=== PATIENT | male | born 1985 | race Caucasian/White ===

== ENCOUNTER 2016-07-28 16:33 | Emergency (ER) | payer MEDICARE, MEDICAID ==
[~2016-07-28] VITALS: Ht 177.8 cm; Wt 133.4 kg
[~2016-07-28 16:33] MED LIST: AMOX1TAB26 PO; ASPI-770 PO; BUDE10.2 INH; INSU100C5 SQ; INSU100V13 SQ; LEVAMIR; LEVAMIR PO; LISI-167; LISI-167 PO; METF-86; METF10002 PO; METF500T4 PO; MUPI22OI2 TP; SIMV10TA3; SIMV10TA3 PO; TRAM100T2; VANC1VIA3 PO
[2016-07-28 16:35] VITALS: BP 174/93
[2016-07-28] MEDS ORDERED: HYDROcodone/APAP 5/325 TABLET PO STA (17:40)
[2016-07-28] MEDS ORDERED: HYDROcodone/APAP 5/325 TABLET ONE (17:47)
== END 2016-07-28 18:24 | disposition home or self-care (01) ==
LOC: ED 18:18
DX: S40.011A Contusion of right shoulder, initial encounter (principal); S60.221A Contusion of right hand, initial encounter; S16.1XXA Strain of muscle, fascia and tendon at neck level, initial encounter; J45.909 Unspecified asthma, uncomplicated; E78.5 Hyperlipidemia, unspecified; E78.00 Pure hypercholesterolemia, unspecified; I10 Essential (primary) hypertension; E11.9 Type 2 diabetes mellitus without complications; W22.8XXA Striking against or struck by other objects, initial encounter; Y93.89 Activity, other specified; Y92.89 Other specified places as the place of occurrence of the external cause; Y99.8 Other external cause status
CPT/HCPCS: 72050; 99284

== ENCOUNTER 2016-10-20 19:58 | Emergency (ER) | payer MEDICARE, MEDICAID ==
[~2016-10-20] VITALS: Ht 177.8 cm; Wt 138.9 kg
[2016-10-20] MEDS ORDERED: SODIUM CHLORIDE FLUSH 10ML SYR IVF ONE (21:00)
[2016-10-20 21:21] VITALS: BP 166/93
[2016-10-20 21:29] LABS: ASPARTATE AMINO TRANSFERASE 21 U/L (15-37); BLOOD UREA NITROGEN 15 mg/dL (7-18)
[2016-10-20 21:34] LABS: IS PT STATUS REG ER OR PRE ER? YES
== END 2016-10-20 22:32 | disposition home or self-care (01) ==
LOC: ED 21:13
DX: I10 Essential (primary) hypertension (principal); R73.9 Hyperglycemia, unspecified; J45.909 Unspecified asthma, uncomplicated; E78.00 Pure hypercholesterolemia, unspecified; G43.909 Migraine, unspecified, not intractable, without status migrainosus
CPT/HCPCS: 36415; 71010; 80053; 84484; 85025; 99285

== ENCOUNTER 2016-12-05 13:15 | Emergency (ER) | payer MEDICARE, MEDICAID ==
[~2016-12-05] VITALS: Ht 177.8 cm; Wt 138.8 kg
[2016-12-05 13:16] VITALS: BP 199/96
[2016-12-05] MEDS ORDERED: IBUPROFEN 200 MG TABLET ONE (13:57)
[2016-12-05] MEDS ORDERED: IBUPROFEN 200 MG TABLET PO ONE (14:00)
== END 2016-12-05 14:37 | disposition home or self-care (01) ==
LOC: ED 14:31
DX: S60.221A Contusion of right hand, initial encounter (principal); J45.909 Unspecified asthma, uncomplicated; I10 Essential (primary) hypertension; E78.00 Pure hypercholesterolemia, unspecified; E11.9 Type 2 diabetes mellitus without complications; E78.5 Hyperlipidemia, unspecified; Z86.73 Personal history of transient ischemic attack (TIA), and cerebral infarction without residual deficits; X58.XXXA Exposure to other specified factors, initial encounter; Y93.89 Activity, other specified; Y92.89 Other specified places as the place of occurrence of the external cause; Y99.8 Other external cause status
CPT/HCPCS: 99284

== ENCOUNTER → 2016-12-19 | Day surgery (SDC) | payer MEDICARE, MEDICAID ==
[~2016-12-19] MED LIST changes: +METF-162; -METF-86
[2016-12-19 16:53] LABS: CYTOLOGY BODY FLUID RECD INTO PATHOLOGY; CYTOLOGY BODY FLUID SOURCE CEREBROSPINAL FLUID
[2016-12-19 17:04] LABS: HEMATOCRIT 40.7 % (39.2-51.8); HEMOGLOBIN 13.2 g/dL (13.7-18.0); WHITE BLOOD COUNT 9.3 x10^3/uL (3.4-10)
[2016-12-19 17:14] LABS: ASPARTATE AMINO TRANSFERASE 15 U/L (15-37); BLOOD UREA NITROGEN 11 mg/dL (7-18)
[2016-12-19 17:37] LABS: GLUCOSE, CSF 156 mg/dL (40-80)
[2016-12-23 09:07] LABS: CRYPTOCOCCUS ANTIGEN CSF Negative (Negative); MANDATED REFLEX TO CULTURE Not Indicated (.)
[2016-12-24 14:19] LABS: ANA SCREEN NEGATIVE (Negative)
[2016-12-25 12:07] LABS: ALBUMIN CSF 22 mg/dL (11-48); ALBUMIN SERUM 3.7 g/dL (3.5-5.5); CSF IGG INDEX 0.7 (0.0-0.7); CSF/SERUM ALBUMIN INDEX 6 (0-8); IGG SERUM 524 mg/dL (700-1600); IGG SYNTHESIS RATE CSF 2.1 mg/day (-9.9 TO +3.3); MYELIN BASIC PROTEIN CSF 1.6 ng/mL (0.0-1.2)
== END ==
LOC: RAD 13:48
PROVIDERS: ATTEND Psychiatry & Neurology Neurology
DX: G93.2 Benign intracranial hypertension (principal); E11.9 Type 2 diabetes mellitus without complications; Z86.73 Personal history of transient ischemic attack (TIA), and cerebral infarction without residual deficits; Z98.890 Other specified postprocedural states; Z87.39 Personal history of other diseases of the musculoskeletal system and connective tissue
CPT/HCPCS: 36415; 62270; 80053; 82040; 82042; 82164; 82784; 82945; 83873; 84157; 85651; 86038; 86592; 86645; 86695; 86696; 86762; 86777; 86778; 87070; 87075; 87102; 87116; 87205; 87206; 87899; 88108; 89051

== ENCOUNTER 2016-12-20 18:52 | Emergency (ER) | payer MEDICARE, MEDICAID ==
[~2016-12-20] VITALS: Ht 177.8 cm; Wt 141.8 kg
[2016-12-20] MEDS ORDERED: SODIUM CHLORIDE FLUSH 10ML SYR IVF ONE (19:30)
[2016-12-20 19:39] LABS: BLOOD UREA NITROGEN 12 mg/dL (7-18)
[2016-12-20 19:52] LABS: HEMATOCRIT 41.7 % (39.2-51.8); HEMOGLOBIN 14.1 g/dL (13.7-18.0); WHITE BLOOD COUNT 10.9 x10^3/uL (3.4-10)
[2016-12-20] MEDS ORDERED: DIAZEPAM 5 MG/ML, 2ML IV ONE (20:30)
[2016-12-20] MEDS ORDERED: ONDANSETRON 2MG/ML, 2ML IVPush ONE (20:30)
[2016-12-20] MEDS ORDERED: HYDROmorphone 1 MG/ML, 1ML IV ONE (20:30)
[2016-12-20] MEDS ORDERED: HYDROmorphone 1 MG/ML, 1ML ONE (20:44)
[2016-12-20] MEDS ORDERED: DIAZEPAM 5 MG/ML, 2ML ONE (20:44)
[2016-12-20] MEDS ORDERED: ONDANSETRON 2MG/ML, 2ML ONE (20:44)
[2016-12-20 21:16] VITALS: BP 162/96
== END 2016-12-20 22:57 | disposition home or self-care (01) ==
LOC: ED 22:34
DX: S33.5XXA Sprain of ligaments of lumbar spine, initial encounter (principal); M48.06 Spinal stenosis, lumbar region; I10 Essential (primary) hypertension; E78.00 Pure hypercholesterolemia, unspecified; E11.65 Type 2 diabetes mellitus with hyperglycemia; E78.5 Hyperlipidemia, unspecified; J45.909 Unspecified asthma, uncomplicated; Z86.73 Personal history of transient ischemic attack (TIA), and cerebral infarction without residual deficits; Z90.49 Acquired absence of other specified parts of digestive tract; X58.XXXA Exposure to other specified factors, initial encounter; Y93.89 Activity, other specified; Y92.89 Other specified places as the place of occurrence of the external cause; Y99.9 Unspecified external cause status
CPT/HCPCS: 36415; 72148; 80048; 82040; 83605; 85025; 96374; 96375; 99285; J1170; J2405; J3360

== ENCOUNTER 2017-05-19 18:11 | Emergency (ER) | payer MEDICARE, MEDICAID ==
[~2017-05-19] VITALS: Ht 180.3 cm; Wt 138.0 kg
[2017-05-19 18:14] VITALS: BP 156/99
== END 2017-05-19 19:08 | disposition home or self-care (01) ==
LOC: ED 19:00
DX: G89.11 Acute pain due to trauma (principal); M79.601 Pain in right arm; I10 Essential (primary) hypertension; E11.9 Type 2 diabetes mellitus without complications; G43.909 Migraine, unspecified, not intractable, without status migrainosus; E78.00 Pure hypercholesterolemia, unspecified
CPT/HCPCS: 99284

== ENCOUNTER 2017-07-19 18:45 | Emergency (ER) | payer MEDICARE, MEDICAID ==
[~2017-07-19] VITALS: Ht 177.8 cm; Wt 141.2 kg
[2017-07-19] MEDS ORDERED: SODIUM CHLORIDE FLUSH 10ML SYR IVF ONE (19:30)
[2017-07-19 19:37] LABS: BASOPHILS # (AUTO) 0.04 x10^3/uL (0-0.1); BASOPHILS % (AUTO) 0 % (0-1); EOSINOPHILS % (AUTO) 1 % (1-7); LYMPHOCYTES # (AUTO) 2.18 x10^3/uL (1-3.4); LYMPHOCYTES % (AUTO) 16 % (22-44); MD NO; MEAN CORPUSCULAR HEMOGLOBIN 28.6 pg (27.5-34.5); MEAN PLATELET VOLUME 10.4 fL (7.4-10.4); MONOCYTES # (AUTO) 0.78 x10^3/uL (0.2-0.8); MONOCYTES % (AUTO) 6 % (2-9); NEUTROPHILS # (AUTO) 10.69 x10^3/uL (1.8-6.8); NEUTROPHILS % (AUTO) 78 % (42-75); PLATELET COUNT 180 x10^3/uL (130-400); RED CELL DISTRIBUTION WIDTH 13.8 % (9.4-14.8)
[2017-07-19 19:45] LABS: ALBUMIN 2.5 g/dL (3.4-5.0); ANION GAP 10 mmol/L (5-15); CALCIUM 8.2 mg/dL (8.5-10.1); CHLORIDE 103 mmol/L (98-107); CREATININE 1.27 mg/dL (0.7-1.3)
[2017-07-19 19:49] LABS: TROPONIN I < 0.015 ng/mL (0.000-0.045)
[2017-07-19 21:36] VITALS: BP 144/80
[2017-07-20] MEDS ORDERED: OMNIPAQUE 350 MG/ML, 100ML BOTTLE ONE (02:02)
== END 2017-07-19 21:39 | disposition home or self-care (01) ==
LOC: ED 19:59
DX: L03.116 Cellulitis of left lower limb (principal); L03.115 Cellulitis of right lower limb; M79.662 Pain in left lower leg; E10.65 Type 1 diabetes mellitus with hyperglycemia; R06.00 Dyspnea, unspecified; E78.00 Pure hypercholesterolemia, unspecified; I10 Essential (primary) hypertension; E78.5 Hyperlipidemia, unspecified; J45.909 Unspecified asthma, uncomplicated; Z86.73 Personal history of transient ischemic attack (TIA), and cerebral infarction without residual deficits
CPT/HCPCS: 36415; 71045; 71275; 80048; 82040; 84484; 85025; 93005; 99285; Q9967

== ENCOUNTER 2017-07-24 18:45 | Emergency (ER) | payer MEDICARE, MEDICAID ==
[~2017-07-24] VITALS: Ht 177.8 cm; Wt 144.2 kg
[2017-07-24 20:37] LABS: BASOPHILS # (AUTO) 0.03 x10^3/uL (0-0.1); BASOPHILS % (AUTO) 0 % (0-1); EOSINOPHILS # (AUTO) 0.22 x10^3/uL (0-0.4); EOSINOPHILS % (AUTO) 2 % (1-7); LYMPHOCYTES # (AUTO) 2.19 x10^3/uL (1-3.4); LYMPHOCYTES % (AUTO) 18 % (22-44); MD NO; MEAN CORPUSCULAR HEMOGLOBIN 29.2 pg (27.5-34.5); MEAN CORPUSCULAR VOLUME 85.8 fL (81-97); MEAN PLATELET VOLUME 9.3 fL (7.4-10.4); MONOCYTES % (AUTO) 5 % (2-9); NEUTROPHILS # (AUTO) 9.06 x10^3/uL (1.8-6.8); NEUTROPHILS % (AUTO) 75 % (42-75); PLATELET COUNT 225 x10^3/uL (130-400); RED BLOOD COUNT 4.47 x10^6/uL (4.38-5.82); RED CELL DISTRIBUTION WIDTH 14.2 % (9.4-14.8)
[2017-07-24 20:48] LABS: ALBUMIN 2.8 g/dL (3.4-5.0); ANION GAP 6 mmol/L (5-15); CALCIUM 9.3 mg/dL (8.5-10.1); CHLORIDE 105 mmol/L (98-107)
[2017-07-24 20:52] LABS: TROPONIN I < 0.015 ng/mL (0.000-0.045)
[2017-07-24] MEDS ORDERED: LABETALOL 5MG/ML, 20ML ONE (21:28)
[2017-07-24] MEDS ORDERED: SODIUM CHLORIDE FLUSH 10ML SYR IVF ONE (21:30)
[2017-07-24] MEDS ORDERED: LABETALOL 5MG/ML, 20ML IVPush ONE (21:30)
[2017-07-24] MEDS ORDERED: ASPIRIN 81 MG TABLET CHEW PO ONE (21:30)
[2017-07-24] MEDS ORDERED: ASPIRIN 81 MG TABLET CHEW ONE (21:32)
[2017-07-24 22:26] LABS: TROPONIN I < 0.015 ng/mL (0.000-0.045)
[2017-07-24 22:38] VITALS: BP 182/87
== END 2017-07-24 23:55 | disposition home or self-care (01) ==
LOC: ED 23:06
DX: R07.89 Other chest pain (principal); E11.65 Type 2 diabetes mellitus with hyperglycemia; I10 Essential (primary) hypertension; Z72.89 Other problems related to lifestyle; E78.00 Pure hypercholesterolemia, unspecified; J45.909 Unspecified asthma, uncomplicated; E78.5 Hyperlipidemia, unspecified; Z86.73 Personal history of transient ischemic attack (TIA), and cerebral infarction without residual deficits; Z90.49 Acquired absence of other specified parts of digestive tract
CPT/HCPCS: 36415; 71046; 80048; 82040; 84484; 85025; 93005; 96374

== ENCOUNTER 2017-09-29 15:58 | Emergency (ER) | payer MEDICARE, MEDICAID ==
[~2017-09-29] VITALS: Ht 177.8 cm; Wt 143.0 kg
[~2017-09-29 15:58] MED LIST changes: -ASPI-770 PO; +ASPI81TA59 PO; -TRAM100T2; +TRAM100T33
[2017-09-29 16:04] VITALS: BP 166/101
[2017-09-29] MEDS ORDERED: KETOROLAC 30 MG/1 ML ONE (17:23)
[2017-09-29] MEDS ORDERED: KETOROLAC 30 MG/1 ML IM ONE (17:30)
== END 2017-09-29 17:58 | disposition home or self-care (01) ==
LOC: ED 17:52
DX: S20.211A Contusion of right front wall of thorax, initial encounter (principal); K04.7 Periapical abscess without sinus; E11.65 Type 2 diabetes mellitus with hyperglycemia; E78.00 Pure hypercholesterolemia, unspecified; J45.909 Unspecified asthma, uncomplicated; I10 Essential (primary) hypertension; E78.5 Hyperlipidemia, unspecified; Z86.73 Personal history of transient ischemic attack (TIA), and cerebral infarction without residual deficits; Z90.49 Acquired absence of other specified parts of digestive tract; W01.0XXA Fall on same level from slipping, tripping and stumbling without subsequent striking against object, initial encounter; Y93.89 Activity, other specified; Y92.89 Other specified places as the place of occurrence of the external cause; Y99.8 Other external cause status
CPT/HCPCS: 70486; 71046; 99284

== ENCOUNTER 2017-10-06 10:11 | Emergency (ER) | payer MEDICARE, MEDICAID ==
[~2017-10-06] VITALS: Ht 177.8 cm; Wt 144.0 kg
[2017-10-06] MEDS ORDERED: ALBU18HF INH (10:33)
[2017-10-06] MEDS ORDERED: IBUP200C5 PO (10:34)
[2017-10-06 10:56] LABS: BASOPHILS # (AUTO) 0.03 x10^3/uL (0-0.1); BASOPHILS % (AUTO) 0 % (0-1); EOSINOPHILS # (AUTO) 0.19 x10^3/uL (0-0.4); EOSINOPHILS % (AUTO) 2 % (1-7); LYMPHOCYTES # (AUTO) 1.76 x10^3/uL (1-3.4); LYMPHOCYTES % (AUTO) 18 % (22-44); MD NO; MEAN CORPUSCULAR HGB CONC 34.3 g/dL (33.2-36.2); MEAN CORPUSCULAR VOLUME 84.4 fL (81-97); MEAN PLATELET VOLUME 9.7 fL (7.4-10.4); MONOCYTES # (AUTO) 0.37 x10^3/uL (0.2-0.8); MONOCYTES % (AUTO) 4 % (2-9); NEUTROPHILS # (AUTO) 7.58 x10^3/uL (1.8-6.8); NEUTROPHILS % (AUTO) 76 % (42-75); PLATELET COUNT 160 x10^3/uL (130-400); RED BLOOD COUNT 4.77 x10^6/uL (4.38-5.82); RED CELL DISTRIBUTION WIDTH 14.4 % (9.4-14.8)
[2017-10-06 11:08] LABS: ALANINE AMINOTRANSFERASE 31 U/L (12-78); ALBUMIN 2.9 g/dL (3.4-5.0); ANION GAP 11 mmol/L (5-15); CALCIUM 8.7 mg/dL (8.5-10.1); CHLORIDE 107 mmol/L (98-107); CREATININE 1.02 mg/dL (0.7-1.3)
[2017-10-06 11:12] LABS: ALKALINE PHOSPHATASE 207 U/L (45-117); BILIRUBIN,TOTAL 0.3 mg/dL (0.2-1.0); TOTAL PROTEIN 6.6 g/dL (6.4-8.2); TROPONIN I < 0.015 ng/mL (0.000-0.045)
[2017-10-06 11:46] VITALS: BP 167/88
== END 2017-10-06 11:48 | disposition home or self-care (01) ==
LOC: ED 11:09
DX: R06.00 Dyspnea, unspecified (principal); E78.5 Hyperlipidemia, unspecified; E78.00 Pure hypercholesterolemia, unspecified; I10 Essential (primary) hypertension; E11.9 Type 2 diabetes mellitus without complications
CPT/HCPCS: 36415; 71046; 80053; 84484; 85025; 93005; 99285

== ENCOUNTER 2017-10-11 20:16 | Emergency (ER) | payer MEDICARE, MEDICAID ==
[~2017-10-11] VITALS: Ht 177.8 cm; Wt 145.9 kg
[~2017-10-11 20:16] MED LIST changes: +ALBU18HF INH; +IBUP200C5 PO
[2017-10-11] MEDS ORDERED: PROPARACAINE OPHTH 0.5%, 15ML ONE (20:46)
[2017-10-11] MEDS ORDERED: FLUORESCEIN OPHTHALMIC 1 MG STRIP EACHEYE ONE (21:00)
[2017-10-11] MEDS ORDERED: PROPARACAINE OPHTH 0.5%, 15ML EACHEYE ONE (21:00)
[2017-10-11 22:05] VITALS: BP 180/97
== END 2017-10-11 22:07 | disposition home or self-care (01) ==
LOC: ED 21:21
DX: S00.211A Abrasion of right eyelid and periocular area, initial encounter (principal); H57.11 Ocular pain, right eye; X58.XXXA Exposure to other specified factors, initial encounter; Y93.89 Activity, other specified; Y92.89 Other specified places as the place of occurrence of the external cause; Y99.8 Other external cause status
CPT/HCPCS: 99283

== ENCOUNTER 2017-10-25 23:16 | Emergency (ER) | payer MEDICARE, MEDICAID ==
[~2017-10-25] VITALS: Ht 172.7 cm; Wt 142.9 kg
[~2017-10-25 23:16] MED LIST changes: -METF500T4 PO; +METF500T5 PO
[2017-10-26] MEDS ORDERED: DIPH,PERTUSS(ACELL),TET VAC/PF 0.5 ML IM-VACC ONE ×2 (00:27)
[2017-10-26 00:28] VITALS: BP 190/100
== END 2017-10-26 00:37 | disposition home or self-care (01) ==
LOC: ED 10-26 00:25
DX: S91.332A Puncture wound without foreign body, left foot, initial encounter (principal); E78.5 Hyperlipidemia, unspecified; J45.909 Unspecified asthma, uncomplicated; G43.909 Migraine, unspecified, not intractable, without status migrainosus; E11.9 Type 2 diabetes mellitus without complications; I10 Essential (primary) hypertension; Z86.73 Personal history of transient ischemic attack (TIA), and cerebral infarction without residual deficits; W21.31XA Struck by shoe cleats, initial encounter; Y93.89 Activity, other specified; Y99.8 Other external cause status; Y92.89 Other specified places as the place of occurrence of the external cause
CPT/HCPCS: 90471; 90715; 99283

== ENCOUNTER 2017-10-28 21:17 | Emergency (ER) | payer MEDICARE, MEDICAID ==
[~2017-10-28] VITALS: Ht 177.8 cm; Wt 145.4 kg
[2017-10-28 22:17] LABS: BASOPHILS # (AUTO) 0.03 x10^3/uL (0-0.1); BASOPHILS % (AUTO) 0 % (0-1); EOSINOPHILS # (AUTO) 0.23 x10^3/uL (0-0.4); EOSINOPHILS % (AUTO) 2 % (1-7); LYMPHOCYTES # (AUTO) 1.72 x10^3/uL (1-3.4); LYMPHOCYTES % (AUTO) 18 % (22-44); MD NO; MEAN CORPUSCULAR HEMOGLOBIN 28.9 pg (27.5-34.5); MEAN CORPUSCULAR HGB CONC 34.1 g/dL (33.2-36.2); MEAN CORPUSCULAR VOLUME 84.7 fL (81-97); MEAN PLATELET VOLUME 10.2 fL (7.4-10.4); MONOCYTES # (AUTO) 0.61 x10^3/uL (0.2-0.8); MONOCYTES % (AUTO) 6 % (2-9); NEUTROPHILS # (AUTO) 7.19 x10^3/uL (1.8-6.8); NEUTROPHILS % (AUTO) 74 % (42-75); PLATELET COUNT 148 x10^3/uL (130-400); RED BLOOD COUNT 4.97 x10^6/uL (4.38-5.82); RED CELL DISTRIBUTION WIDTH 14.4 % (9.4-14.8)
[2017-10-28 22:25] LABS: ALBUMIN 2.8 g/dL (3.4-5.0); ANION GAP 10 mmol/L (5-15); CALCIUM 8.7 mg/dL (8.5-10.1); CHLORIDE 102 mmol/L (98-107); CREATININE 1.24 mg/dL (0.7-1.3)
[2017-10-28 22:29] LABS: TROPONIN I < 0.015 ng/mL (0.000-0.045)
[2017-10-28] MEDS ORDERED: INSULIN REGULAR 100 UNITS/ML, 3ML VIAL SQ-INSULIN STA (22:41)
[2017-10-28] MEDS ORDERED: INSULIN REGULAR 100 UNITS/ML, 3ML VIAL ONE (22:46)
[2017-10-28 22:53] VITALS: BP 180/97
== END 2017-10-28 22:55 | disposition home or self-care (01) ==
LOC: ED 21:42
DX: R07.89 Other chest pain (principal); E10.65 Type 1 diabetes mellitus with hyperglycemia; E66.01 Morbid (severe) obesity due to excess calories; Z68.42 Body mass index [BMI] 45.0-49.9, adult; E78.5 Hyperlipidemia, unspecified; Z86.73 Personal history of transient ischemic attack (TIA), and cerebral infarction without residual deficits; E78.00 Pure hypercholesterolemia, unspecified; J45.909 Unspecified asthma, uncomplicated; I10 Essential (primary) hypertension
CPT/HCPCS: 36415; 71045; 80048; 82040; 84484; 85025; 93005; 96372; 99285

== ENCOUNTER 2017-11-10 20:51 | Emergency (ER) | payer MEDICARE, MEDICAID ==
[~2017-11-10] VITALS: Ht 177.8 cm; Wt 139.0 kg
[2017-11-10] MEDS ORDERED: KETOROLAC 30 MG/1 ML ONE (21:46)
[2017-11-10 21:56] LABS: BASOPHILS # (AUTO) 0.05 x10^3/uL (0-0.1); BASOPHILS % (AUTO) 1 % (0-1); EOSINOPHILS % (AUTO) 5 % (1-7); LYMPHOCYTES # (AUTO) 2.26 x10^3/uL (1-3.4); LYMPHOCYTES % (AUTO) 26 % (22-44); MD NO; MEAN CORPUSCULAR HEMOGLOBIN 28.7 pg (27.5-34.5); MEAN CORPUSCULAR HGB CONC 34.2 g/dL (33.2-36.2); MEAN CORPUSCULAR VOLUME 84.1 fL (81-97); MEAN PLATELET VOLUME 10.2 fL (7.4-10.4); MONOCYTES % (AUTO) 7 % (2-9); NEUTROPHILS # (AUTO) 5.32 x10^3/uL (1.8-6.8); NEUTROPHILS % (AUTO) 62 % (42-75); PLATELET COUNT 177 x10^3/uL (130-400); RED BLOOD COUNT 5.12 x10^6/uL (4.38-5.82); RED CELL DISTRIBUTION WIDTH 14.6 % (9.4-14.8)
[2017-11-10] MEDS ORDERED: KETOROLAC 60 MG/2 ML IM ONE (22:00)
[2017-11-10 22:09] LABS: ALANINE AMINOTRANSFERASE 40 U/L (12-78); ALBUMIN 3.2 g/dL (3.4-5.0); ANION GAP 7 mmol/L (5-15); CALCIUM 8.7 mg/dL (8.5-10.1); CHLORIDE 106 mmol/L (98-107); CREATININE 1.76 mg/dL (0.7-1.3)
[2017-11-10 22:13] LABS: ALKALINE PHOSPHATASE 185 U/L (45-117); BILIRUBIN,TOTAL 0.5 mg/dL (0.2-1.0); TOTAL PROTEIN 6.7 g/dL (6.4-8.2); TROPONIN I < 0.015 ng/mL (0.000-0.045)
[2017-11-10] MEDS ORDERED: SODIUM CHLORIDE FLUSH 10ML SYR IVF ONE (22:30)
[2017-11-10] MEDS ORDERED: SODIUM CHLORIDE 0.9% 1,000ML IVBOLUS ONE (22:30)
[2017-11-10 22:45] VITALS: BP 120/66
== END 2017-11-10 23:20 | disposition home or self-care (01) ==
LOC: ED 22:44
DX: R07.89 Other chest pain (principal); E11.65 Type 2 diabetes mellitus with hyperglycemia; R94.4 Abnormal results of kidney function studies; E66.01 Morbid (severe) obesity due to excess calories; Z68.41 Body mass index [BMI] 40.0-44.9, adult; Z72.9 Problem related to lifestyle, unspecified
CPT/HCPCS: 36415; 71045; 80053; 84484; 85025; 93005; 96360; 96372; 99285; J1885; J7030

== ENCOUNTER 2017-12-15 11:22 | Emergency (ER) | payer MEDICARE, MEDICAID ==
[~2017-12-15] VITALS: Ht 177.8 cm; Wt 140.3 kg
[~2017-12-15 11:22] MED LIST changes: +IBUP-1623 PO; -IBUP200C5 PO
[2017-12-15 11:23] VITALS: BP 166/97
[2017-12-15] MEDS ORDERED: KETOROLAC 30 MG/1 ML ONE (11:43)
[2017-12-15] MEDS ORDERED: KETOROLAC 30 MG/1 ML IM ONE (12:00)
== END 2017-12-15 13:07 | disposition home or self-care (01) ==
LOC: ED 11:57
DX: S20.211A Contusion of right front wall of thorax, initial encounter (principal); S40.012A Contusion of left shoulder, initial encounter; I10 Essential (primary) hypertension; E11.9 Type 2 diabetes mellitus without complications; J45.909 Unspecified asthma, uncomplicated; E78.00 Pure hypercholesterolemia, unspecified; E66.9 Obesity, unspecified; E78.5 Hyperlipidemia, unspecified; Z90.89 Acquired absence of other organs; Z86.73 Personal history of transient ischemic attack (TIA), and cerebral infarction without residual deficits; Z90.49 Acquired absence of other specified parts of digestive tract; Z68.41 Body mass index [BMI] 40.0-44.9, adult; V49.49XA Driver injured in collision with other motor vehicles in traffic accident, initial encounter; Y93.89 Activity, other specified; Y99.8 Other external cause status; Y92.89 Other specified places as the place of occurrence of the external cause
CPT/HCPCS: 71101; 73030; 96372; 99284; J1885

== ENCOUNTER 2018-04-20 20:03 | Emergency (ER) | payer MEDICARE, MEDICAID ==
[~2018-04-20] VITALS: Ht 177.8 cm; Wt 143.0 kg
[~2018-04-20 20:03] MED LIST changes: +METF500T17 PO; -METF500T5 PO
[2018-04-20] MEDS ORDERED: KETOROLAC 30 MG/1 ML ONE (20:43)
[2018-04-20 20:48] VITALS: BP 160/96
[2018-04-20] MEDS ORDERED: KETOROLAC 30 MG/1 ML IM ONE (21:00)
== END 2018-04-20 21:03 | disposition home or self-care (01) ==
LOC: ED 20:50
DX: S20.01XA Contusion of right breast, initial encounter (principal); I10 Essential (primary) hypertension; E78.5 Hyperlipidemia, unspecified; E11.9 Type 2 diabetes mellitus without complications; Z86.73 Personal history of transient ischemic attack (TIA), and cerebral infarction without residual deficits; Z90.49 Acquired absence of other specified parts of digestive tract; Z79.4 Long term (current) use of insulin; Z79.899 Other long term (current) drug therapy; W01.0XXA Fall on same level from slipping, tripping and stumbling without subsequent striking against object, initial encounter; Y93.89 Activity, other specified; Y92.009 Unspecified place in unspecified non-institutional (private) residence as the place of occurrence of the external cause; Y99.8 Other external cause status
CPT/HCPCS: 71101; 96372; 99283; J1885

== ENCOUNTER 2018-05-13 18:42 | Emergency (ER) | payer MEDICARE, MEDICAID ==
[~2018-05-13] VITALS: Ht 177.8 cm; Wt 145.0 kg
[2018-05-13 19:29] LABS: BASOPHILS # (AUTO) 0.04 x10^3/uL (0-0.1); BASOPHILS % (AUTO) 0 % (0-1); EOSINOPHILS # (AUTO) 0.29 x10^3/uL (0-0.4); EOSINOPHILS % (AUTO) 3 % (1-7); LYMPHOCYTES # (AUTO) 2.13 x10^3/uL (1-3.4); LYMPHOCYTES % (AUTO) 21 % (22-44); MD NO; MEAN CORPUSCULAR HEMOGLOBIN 27.5 pg (27.5-34.5); MEAN CORPUSCULAR HGB CONC 33.8 g/dL (33.2-36.2); MEAN CORPUSCULAR VOLUME 81.2 fL (81-97); MEAN PLATELET VOLUME 10.6 fL (7.4-10.4); MONOCYTES # (AUTO) 0.65 x10^3/uL (0.2-0.8); MONOCYTES % (AUTO) 6 % (2-9); NEUTROPHILS % (AUTO) 70 % (42-75); PLATELET COUNT 156 x10^3/uL (130-400); RED BLOOD COUNT 5.49 x10^6/uL (4.38-5.82)
[2018-05-13 19:37] LABS: ALBUMIN 3.1 g/dL (3.4-5.0); ANION GAP 8 mmol/L (5-15); CALCIUM 9.3 mg/dL (8.5-10.1); CHLORIDE 104 mmol/L (98-107)
[2018-05-13 19:44] LABS: ALANINE AMINOTRANSFERASE 31 U/L (12-78); ALKALINE PHOSPHATASE 203 U/L (45-117); BILIRUBIN,TOTAL 0.5 mg/dL (0.2-1.0); CREATININE 1.07 mg/dL (0.7-1.3); TOTAL PROTEIN 6.9 g/dL (6.4-8.2); TROPONIN I < 0.015 ng/mL (0.000-0.045)
--- NOTE | 2018-05-13 19:58 | NUR ---
assessment made. chart up for MD to see.
--- NOTE | 2018-05-13 20:15 | NUR ---
all labs resulted. chart up for MD to re-eval.
--- NOTE | 2018-05-13 21:12 | NUR ---
PA at bedside.
--- NOTE | 2018-05-13 21:39 | NUR ---
ERP at bedside for re-evaluation. awaiting discharge paper.
--- NOTE | 2018-05-13 22:07 | NUR ---
patient discharged with instruction. verbalized understanding.
[2018-05-13 22:09] VITALS: BP 165/92
== END 2018-05-13 22:11 | disposition home or self-care (01) ==
LOC: ED 21:37
DX: R07.89 Other chest pain (principal); I10 Essential (primary) hypertension; E11.9 Type 2 diabetes mellitus without complications; E78.00 Pure hypercholesterolemia, unspecified; J45.909 Unspecified asthma, uncomplicated; G43.909 Migraine, unspecified, not intractable, without status migrainosus; E78.5 Hyperlipidemia, unspecified; E66.01 Morbid (severe) obesity due to excess calories; Z68.42 Body mass index [BMI] 45.0-49.9, adult; Z86.73 Personal history of transient ischemic attack (TIA), and cerebral infarction without residual deficits
CPT/HCPCS: 36415; 71046; 80053; 84484; 85025; 93005; 99284

== ENCOUNTER 2018-07-09 21:33 | Emergency (ER) | payer MEDICARE, MEDICAID ==
[~2018-07-09] VITALS: Ht 177.8 cm; Wt 141.0 kg
[2018-07-09 21:48] VITALS: BP 151/97
== END 2018-07-09 22:54 | disposition home or self-care (01) ==
LOC: ED 22:20
DX: G89.11 Acute pain due to trauma (principal); M25.561 Pain in right knee; I10 Essential (primary) hypertension; E78.00 Pure hypercholesterolemia, unspecified; E11.65 Type 2 diabetes mellitus with hyperglycemia; J45.909 Unspecified asthma, uncomplicated; X58.XXXA Exposure to other specified factors, initial encounter; Y93.89 Activity, other specified; Y92.89 Other specified places as the place of occurrence of the external cause; Y99.8 Other external cause status
CPT/HCPCS: 99283

== ENCOUNTER 2018-08-16 18:09 | Emergency (ER) | payer MEDICARE, MEDICAID ==
[~2018-08-16] VITALS: Ht 177.8 cm; Wt 140.8 kg
[2018-08-16 18:16] VITALS: BP 197/110
--- NOTE | 2018-08-16 18:34 | NUR ---
pt to ed for right sided lower rib pain since yesterday. pt reports severe coughing and hearing a "pop" yesterday. connected to monitors. vss. awaiting edmd assessment.
--- NOTE | 2018-08-16 18:50 | NUR ---
pt to xr.
[2018-08-16] MEDS ORDERED: KETOROLAC 30 MG/1 ML ONE (19:26)
[2018-08-16] MEDS ORDERED: KETOROLAC 30 MG/1 ML IM ONE (19:30)
--- NOTE | 2018-08-16 19:37 | NUR ---
PT MEDICATED WITH 60MG TORADOL PER EMAR. STATES "HE FEELS NAUSEATED TOO." NOTIFIED PHYSICIAN.
[2018-08-16] MEDS ORDERED: ONDANSETRON ODT 4 MG ONE (19:43)
[2018-08-16] MEDS ORDERED: ONDANSETRON ODT 4 MG PO ONE (20:00)
== END 2018-08-16 20:08 | disposition home or self-care (01) ==
LOC: ED 18:59
DX: M94.0 Chondrocostal junction syndrome [Tietze] (principal); I10 Essential (primary) hypertension; E11.65 Type 2 diabetes mellitus with hyperglycemia; E78.5 Hyperlipidemia, unspecified; J45.909 Unspecified asthma, uncomplicated; G89.29 Other chronic pain; E66.01 Morbid (severe) obesity due to excess calories; Z90.89 Acquired absence of other organs; Z90.49 Acquired absence of other specified parts of digestive tract; Z86.73 Personal history of transient ischemic attack (TIA), and cerebral infarction without residual deficits; Z68.41 Body mass index [BMI] 40.0-44.9, adult
CPT/HCPCS: 71101; 96372; 99283; J1885; Q0162

== ENCOUNTER 2018-08-21 05:34 | Emergency (ER) | payer MEDICARE, MEDICAID ==
[~2018-08-21] VITALS: Ht 177.8 cm; Wt 145.0 kg
--- NOTE | 2018-08-21 05:44 | NUR ---
EKG DONE IN TRIAGE
[2018-08-21] MEDS ORDERED: ALBUTEROL SULFATE 2.5 MG/3 ML NPPB ONE (06:00)
[2018-08-21] MEDS ORDERED: ALBUTEROL SULFATE 2.5 MG/3 ML ONE (06:15)
[2018-08-21] MEDS ORDERED: LISINOPRIL 10 MG TABLET ONE (06:42)
--- NOTE | 2018-08-21 06:46 | NUR ---
PT MEDICATED PER JUN. PT UP TO RESTROOM WITH STEADY GAIT AT THIS TIME.
--- NOTE | 2018-08-21 06:49 | NUR ---
RECIVED BEDSIDE REPORT FROM FACUNDO PATTON.
[2018-08-21] MEDS ORDERED: LISINOPRIL 10 MG TABLET PO ONE (07:00)
--- NOTE | 2018-08-21 07:07 | NUR ---
PT SITTING ON GURSOCORRO WATCHING VIDEO ON CELL PHONE. NO ACUTE DISTRESS NOTED. NO NEEDS REQUESTED AT THIS TIME.
[2018-08-21 07:10] VITALS: BP 171/97
--- NOTE | 2018-08-21 07:44 | NUR ---
PT AMBULATED FROM ROOM 3 TO ROOM 5 ON PULSE OX, PT SATURATION WAS 100%
--- NOTE | 2018-08-21 08:15 | NUR ---
Patient/Caregiver given discharge instructions and they have confirmed that they understand the instructions. Patient ambulatory with steady gait. PT LEFT WITH ALL PERSONAL BELONGINGS.
== END 2018-08-21 08:27 | disposition home or self-care (01) ==
LOC: ED 06:06
DX: R06.00 Dyspnea, unspecified (principal); I10 Essential (primary) hypertension; E11.9 Type 2 diabetes mellitus without complications; E66.01 Morbid (severe) obesity due to excess calories; Z68.42 Body mass index [BMI] 45.0-49.9, adult; E78.5 Hyperlipidemia, unspecified; G43.909 Migraine, unspecified, not intractable, without status migrainosus; R06.2 Wheezing; E78.00 Pure hypercholesterolemia, unspecified; Z72.9 Problem related to lifestyle, unspecified; Z86.73 Personal history of transient ischemic attack (TIA), and cerebral infarction without residual deficits
CPT/HCPCS: 71046; 93005; 94640; 99283; J7512; J7613

== ENCOUNTER 2018-08-26 02:17 | Emergency (ER) | payer MEDICARE, MEDICAID ==
[~2018-08-26] VITALS: Ht 177.8 cm; Wt 147.8 kg
--- NOTE | 2018-08-26 02:52 | NUR ---
PT. AMBULATORY TO X-RAY WITH STEADY GAIT.
--- NOTE | 2018-08-26 03:36 | NUR ---
PT. SITTING ON GURNEY WITH NADN. RESP EVEN, NON-LABORED. PT. DENIES NEEDS AT THIS TIME. UPDATED THAT WE ARE WATING ON RADIOLOGY READS FOR X-RAYS.
--- NOTE | 2018-08-26 03:52 | NUR ---
CHART UP FOR RECHECK BY ERP.
--- NOTE | 2018-08-26 04:01 | NUR ---
BRO RATLIFF IN TO DISCUSS POC WITH PT.
[2018-08-26 04:12] VITALS: BP 180/111
== END 2018-08-26 04:12 | disposition home or self-care (01) ==
LOC: ED 02:46
DX: G89.11 Acute pain due to trauma (principal); M25.512 Pain in left shoulder; M54.6 Pain in thoracic spine; I10 Essential (primary) hypertension; E11.9 Type 2 diabetes mellitus without complications; X58.XXXA Exposure to other specified factors, initial encounter; Y93.89 Activity, other specified; Y92.410 Unspecified street and highway as the place of occurrence of the external cause; Y99.8 Other external cause status
CPT/HCPCS: 72072; 99283

== ENCOUNTER 2018-09-11 18:55 | Emergency (ER) | payer MEDICARE, MEDICAID ==
[~2018-09-11] VITALS: Ht 177.8 cm; Wt 141.3 kg
[2018-09-11] MEDS ORDERED: KETOROLAC 30 MG/1 ML IM ONE (19:30)
--- NOTE | 2018-09-11 19:30 | NUR ---
PT BIB FAMILY FOR 3 DAYS HX OF LEFT RIB PAIN WITH COUGH DEVOLOPING SINCE YESTERDAY. PT DENIES ANY TRAUMA, SOB, FEVERS, CHILLS, OR SORE THROAT. PT ON MONITOR.
[2018-09-11 19:39] LABS: BASOPHILS # (AUTO) 0.05 x10^3/uL (0-0.1); BASOPHILS % (AUTO) 1 % (0-1); EOSINOPHILS # (AUTO) 0.15 x10^3/uL (0-0.4); EOSINOPHILS % (AUTO) 2 % (1-7); LYMPHOCYTES # (AUTO) 1.91 x10^3/uL (1-3.4); LYMPHOCYTES % (AUTO) 22 % (22-44); MD NO; MEAN CORPUSCULAR HEMOGLOBIN 28.5 pg (27.5-34.5); MEAN CORPUSCULAR HGB CONC 33.1 g/dL (33.2-36.2); MEAN PLATELET VOLUME 10.8 fL (7.4-10.4); MONOCYTES # (AUTO) 0.44 x10^3/uL (0.2-0.8); MONOCYTES % (AUTO) 5 % (2-9); NEUTROPHILS # (AUTO) 6.21 x10^3/uL (1.8-6.8); NEUTROPHILS % (AUTO) 71 % (42-75); PLATELET COUNT 140 x10^3/uL (130-400); RED BLOOD COUNT 4.99 x10^6/uL (4.38-5.82); RED CELL DISTRIBUTION WIDTH 14.4 % (9.4-14.8)
[2018-09-11] MEDS ORDERED: KETOROLAC 30 MG/1 ML ONE (19:46)
[2018-09-11 19:50] LABS: ANION GAP 6 mmol/L (5-15); CALCIUM 8.7 mg/dL (8.5-10.1); CHLORIDE 104 mmol/L (98-107); CREATININE 1.13 mg/dL (0.7-1.3)
[2018-09-11 19:54] LABS: ALKALINE PHOSPHATASE 177 U/L (45-117); BILIRUBIN,TOTAL 0.7 mg/dL (0.2-1.0); TOTAL PROTEIN 6.2 g/dL (6.4-8.2); TROPONIN I < 0.015 ng/mL (0.000-0.045)
[2018-09-11 19:58] LABS: ALANINE AMINOTRANSFERASE 26 U/L (12-78)
--- NOTE | 2018-09-11 20:08 | NUR ---
CHART UP FOR MD RECHECK. PT'S BS WAS 454. PT AWARE.
[2018-09-11 20:24] VITALS: BP 181/91
== END 2018-09-11 20:40 | disposition home or self-care (01) ==
LOC: ED 20:30
DX: R07.89 Other chest pain (principal); I10 Essential (primary) hypertension; R09.1 Pleurisy; E11.65 Type 2 diabetes mellitus with hyperglycemia; E78.00 Pure hypercholesterolemia, unspecified; G43.909 Migraine, unspecified, not intractable, without status migrainosus; J45.909 Unspecified asthma, uncomplicated; E78.5 Hyperlipidemia, unspecified; E66.01 Morbid (severe) obesity due to excess calories; Z68.41 Body mass index [BMI] 40.0-44.9, adult; Z90.49 Acquired absence of other specified parts of digestive tract; Z86.73 Personal history of transient ischemic attack (TIA), and cerebral infarction without residual deficits; Z72.9 Problem related to lifestyle, unspecified
CPT/HCPCS: 36415; 71045; 80053; 84484; 85025; 93005; 96372; 99284; J1885

== ENCOUNTER 2018-09-20 03:49 | Emergency (ER) | payer MEDICARE, MEDICAID ==
[~2018-09-20] VITALS: Ht 177.8 cm; Wt 145.3 kg
--- NOTE | 2018-09-20 04:02 | NUR ---
FIRST CONTACT WITH PT. PT HERE STATING THAT HE HAS HAD A COUGH FOR A MONTH AND HE WOKE UP COUGHING AND THERE WAS BLOOD IN IT. PT ALSO C/O RIGHT GREAT TOE PAIN. PT'S AOX4. RESPS EVEN AND UNLABORED. AWAITING EDMD ASSESSMENT AT THIS TIME.
--- NOTE | 2018-09-20 05:11 | NUR ---
pt to xray now.
[2018-09-20 05:27] LABS: BASOPHILS # (AUTO) 0.05 x10^3/uL (0-0.1); BASOPHILS % (AUTO) 1 % (0-1); EOSINOPHILS % (AUTO) 2 % (1-7); LYMPHOCYTES # (AUTO) 1.55 x10^3/uL (1-3.4); LYMPHOCYTES % (AUTO) 16 % (22-44); MD NO; MEAN CORPUSCULAR HEMOGLOBIN 28.6 pg (27.5-34.5); MEAN CORPUSCULAR HGB CONC 33.3 g/dL (33.2-36.2); MEAN CORPUSCULAR VOLUME 85.8 fL (81-97); MEAN PLATELET VOLUME 10.6 fL (7.4-10.4); MONOCYTES # (AUTO) 0.52 x10^3/uL (0.2-0.8); MONOCYTES % (AUTO) 6 % (2-9); NEUTROPHILS # (AUTO) 7.16 x10^3/uL (1.8-6.8); NEUTROPHILS % (AUTO) 76 % (42-75); PLATELET COUNT 166 x10^3/uL (130-400); RED BLOOD COUNT 5.03 x10^6/uL (4.38-5.82); RED CELL DISTRIBUTION WIDTH 14.2 % (9.4-14.8)
[2018-09-20 05:41] LABS: ANION GAP 7 mmol/L (5-15); CALCIUM 8.6 mg/dL (8.5-10.1); CHLORIDE 109 mmol/L (98-107)
[2018-09-20 05:47] VITALS: BP 205/83
--- NOTE | 2018-09-20 05:47 | NUR ---
pt's bp is 205/83. edmd/pa notified.
--- NOTE | 2018-09-20 06:10 | NUR ---
pt amb to br and back to room with steady gait.
--- NOTE | 2018-09-20 06:55 | NUR ---
REPORT GIVEN TO RADHA LOREDO.
== END 2018-09-20 07:25 | disposition home or self-care (01) ==
LOC: ED 03:59
DX: J15.9 Unspecified bacterial pneumonia (principal); L03.115 Cellulitis of right lower limb; E11.9 Type 2 diabetes mellitus without complications; I10 Essential (primary) hypertension; G43.909 Migraine, unspecified, not intractable, without status migrainosus; E78.00 Pure hypercholesterolemia, unspecified; E78.5 Hyperlipidemia, unspecified; E66.01 Morbid (severe) obesity due to excess calories; Z68.42 Body mass index [BMI] 45.0-49.9, adult; Z90.49 Acquired absence of other specified parts of digestive tract; Z86.73 Personal history of transient ischemic attack (TIA), and cerebral infarction without residual deficits
CPT/HCPCS: 36415; 71046; 80048; 85025; 99284

== ENCOUNTER 2018-10-30 19:20 | Emergency (ER) | payer MEDICARE, MEDICAID ==
[~2018-10-30] VITALS: Ht 177.8 cm; Wt 140.3 kg
[2018-10-30] MEDS ORDERED: KETOROLAC 30 MG/1 ML IM ONE (20:30)
[2018-10-30] MEDS ORDERED: INSU200I4 SQ (20:58)
[2018-10-30] MEDS ORDERED: HYDR50TA3 PO (20:58)
[2018-10-30] MEDS ORDERED: CHLO25TA PO (20:58)
[2018-10-30] MEDS ORDERED: ACET250T2 PO (20:58)
[2018-10-30] MEDS ORDERED: GABA300C10 PO (20:58)
[2018-10-30] MEDS ORDERED: LIDO35.46 TP (20:58)
--- NOTE | 2018-10-30 21:04 | NUR ---
UA SENT TO LAB
[2018-10-30] MEDS ORDERED: KETOROLAC 30 MG/1 ML ONE (21:06)
[2018-10-30 21:18] LABS: MICROSCOPIC AUTO
--- NOTE | 2018-10-30 21:24 | NUR ---
PER YUMIKO, CT W/ CONTRAST CANCELLED.
[2018-10-30 21:32] LABS: CULTURE INDICATED? YES
[2018-10-30 22:43] VITALS: BP 136/85
== END 2018-10-30 22:46 | disposition home or self-care (01) ==
LOC: ED 20:20
DX: S39.012A Strain of muscle, fascia and tendon of lower back, initial encounter (principal); I10 Essential (primary) hypertension; E66.01 Morbid (severe) obesity due to excess calories; E78.5 Hyperlipidemia, unspecified; J45.909 Unspecified asthma, uncomplicated; E11.65 Type 2 diabetes mellitus with hyperglycemia; E78.00 Pure hypercholesterolemia, unspecified; Z90.89 Acquired absence of other organs; Z90.49 Acquired absence of other specified parts of digestive tract; Z86.73 Personal history of transient ischemic attack (TIA), and cerebral infarction without residual deficits; X58.XXXA Exposure to other specified factors, initial encounter; Y93.89 Activity, other specified; Y92.89 Other specified places as the place of occurrence of the external cause; Y99.8 Other external cause status
CPT/HCPCS: 72110; 81001; 87086; 96372; 99284; J1885; 82962

== ENCOUNTER 2018-11-16 20:05 | Emergency (ER) | payer MEDICARE, MEDICAID ==
[~2018-11-16] VITALS: Ht 177.8 cm; Wt 140.7 kg
[~2018-11-16 20:05] MED LIST changes: +ACET250T2 PO; +CHLO25TA PO; +GABA300C10 PO; +HYDR50TA3 PO; +INSU200I4 SQ; +LIDO35.46 TP
[2018-11-16 20:07] VITALS: BP 184/99
[2018-11-16] MEDS ORDERED: NEOSPORIN OINT. PKT 1 PACKET ONE (20:48)
--- NOTE | 2018-11-16 20:54 | NUR ---
DC EDUCATION PROVIDED, PT DEMONSTRATES UNDERSTANDING. PT AMBULATED STEADILY TO DC WITH RN
== END 2018-11-16 20:56 | disposition home or self-care (01) ==
LOC: ED 20:15
DX: S39.012A Strain of muscle, fascia and tendon of lower back, initial encounter (principal); S50.812A Abrasion of left forearm, initial encounter; E78.5 Hyperlipidemia, unspecified; G43.909 Migraine, unspecified, not intractable, without status migrainosus; I10 Essential (primary) hypertension; E11.65 Type 2 diabetes mellitus with hyperglycemia; J45.909 Unspecified asthma, uncomplicated; E66.01 Morbid (severe) obesity due to excess calories; Z68.41 Body mass index [BMI] 40.0-44.9, adult; Z72.9 Problem related to lifestyle, unspecified; Z87.01 Personal history of pneumonia (recurrent); Z90.89 Acquired absence of other organs; Z90.49 Acquired absence of other specified parts of digestive tract; V89.2XXA Person injured in unspecified motor-vehicle accident, traffic, initial encounter; Y93.89 Activity, other specified; Y92.89 Other specified places as the place of occurrence of the external cause; Y99.8 Other external cause status; Z86.73 Personal history of transient ischemic attack (TIA), and cerebral infarction without residual deficits
CPT/HCPCS: 72110; 99283

== ENCOUNTER 2018-11-20 10:14 | Emergency (ER) | payer MEDICARE, MEDICAID ==
[~2018-11-20] VITALS: Ht 177.8 cm; Wt 143.0 kg
[2018-11-20 10:24] VITALS: BP 193/108
== END 2018-11-20 11:39 | disposition home or self-care (01) ==
LOC: ED 11:28
DX: T63.441A Toxic effect of venom of bees, accidental (unintentional), initial encounter (principal); E11.65 Type 2 diabetes mellitus with hyperglycemia; I10 Essential (primary) hypertension
CPT/HCPCS: 82962; 99284; J7512; Q0163

== ENCOUNTER 2018-12-01 22:30 | Emergency (ER) | payer MEDICARE, MEDICAID ==
[~2018-12-01] VITALS: Ht 177.8 cm; Wt 137.1 kg
[2018-12-02 00:05] VITALS: BP 145/90
== END 2018-12-02 00:08 | disposition home or self-care (01) ==
LOC: ED 23:59
DX: T15.02XA Foreign body in cornea, left eye, initial encounter (principal); E66.01 Morbid (severe) obesity due to excess calories; E78.5 Hyperlipidemia, unspecified; J45.909 Unspecified asthma, uncomplicated; E78.00 Pure hypercholesterolemia, unspecified; E11.65 Type 2 diabetes mellitus with hyperglycemia; Z90.89 Acquired absence of other organs; Z86.73 Personal history of transient ischemic attack (TIA), and cerebral infarction without residual deficits; Z90.49 Acquired absence of other specified parts of digestive tract; Z89.442 Acquired absence of left ankle; W45.8XXA Other foreign body or object entering through skin, initial encounter; Y93.89 Activity, other specified; Y92.89 Other specified places as the place of occurrence of the external cause; Y99.8 Other external cause status
CPT/HCPCS: 65222; 99283; 99284

== ENCOUNTER 2018-12-13 19:40 | Emergency (ER) | payer MEDICARE, MEDICAID ==
[~2018-12-13] VITALS: Ht 177.8 cm; Wt 141.7 kg
[2018-12-13 19:42] VITALS: BP 171/89
== END 2018-12-13 22:14 | disposition home or self-care (01) ==
LOC: ED 20:48
DX: S91.301A Unspecified open wound, right foot, initial encounter (principal); N28.9 Disorder of kidney and ureter, unspecified; G43.909 Migraine, unspecified, not intractable, without status migrainosus; E11.9 Type 2 diabetes mellitus without complications; E78.00 Pure hypercholesterolemia, unspecified; J45.909 Unspecified asthma, uncomplicated; E78.5 Hyperlipidemia, unspecified; E66.01 Morbid (severe) obesity due to excess calories; Z68.42 Body mass index [BMI] 45.0-49.9, adult; Z87.01 Personal history of pneumonia (recurrent); Z86.73 Personal history of transient ischemic attack (TIA), and cerebral infarction without residual deficits; Z72.9 Problem related to lifestyle, unspecified; X58.XXXA Exposure to other specified factors, initial encounter; Y93.89 Activity, other specified; Y92.098 Other place in other non-institutional residence as the place of occurrence of the external cause; Y99.8 Other external cause status
CPT/HCPCS: 36415; 80048; 82040; 85025; 99284

== ENCOUNTER 2019-01-07 09:35 | Emergency (ER) | payer MEDICARE, MEDICAID ==
[~2019-01-07] VITALS: Ht 177.8 cm; Wt 136.0 kg
[~2019-01-07 09:35] MED LIST changes: +HYDR50TA13 PO; +IBUP-1223 PO; +METO25TA4 PO
[2019-01-07 09:41] VITALS: BP 183/100
[2019-01-07] MEDS ORDERED: SODIUM CHLORIDE FLUSH 10ML SYR IVF ONE (10:30)
[2019-01-07 10:47] LABS: ALBUMIN 3.4 g/dL (3.4-5.0); ANION GAP 7 mmol/L (5-15); CALCIUM 8.9 mg/dL (8.5-10.1); CHLORIDE 105 mmol/L (98-107); CREATININE 1.37 mg/dL (0.7-1.3)
[2019-01-07 10:53] LABS: BASOPHILS # (AUTO) 0.01 x10^3/uL (0-0.1); BASOPHILS % (AUTO) 0 % (0-1); EOSINOPHILS % (AUTO) 3 % (1-7); LYMPHOCYTES # (AUTO) 1.78 x10^3/uL (1-3.4); LYMPHOCYTES % (AUTO) 15 % (22-44); MD NO; MEAN CORPUSCULAR HGB CONC 33.4 g/dL (33.2-36.2); MEAN CORPUSCULAR VOLUME 86.8 fL (81-97); MEAN PLATELET VOLUME 10.2 fL (7.4-10.4); MONOCYTES # (AUTO) 0.53 x10^3/uL (0.2-0.8); MONOCYTES % (AUTO) 5 % (2-9); NEUTROPHILS # (AUTO) 9.02 x10^3/uL (1.8-6.8); NEUTROPHILS % (AUTO) 77 % (42-75); PLATELET COUNT 178 x10^3/uL (130-400); RED BLOOD COUNT 5.39 x10^6/uL (4.38-5.82); RED CELL DISTRIBUTION WIDTH 15.2 % (9.4-14.8)
[2019-01-07] MEDS ORDERED: SULFAMETH./TRIMETHOPRIM DS 800MG/160MG TABLET PO ONE (11:30)
[2019-01-07] MEDS ORDERED: AMPICILLIN/SULBACTAM 1,500 MG in SODIUM CHLORIDE 0.9% 50 ML IV ONE ×2 (11:30→12:00)
[2019-01-07] MEDS ORDERED: CEPHALEXIN 500 MG CAPSULE PO ONE (11:30)
[2019-01-07] MEDS ORDERED: CEPHALEXIN 500 MG CAPSULE ONE (11:32)
[2019-01-07] MEDS ORDERED: SULFAMETH./TRIMETHOPRIM DS 800MG/160MG TABLET ONE (11:32)
== END 2019-01-07 11:42 | disposition home or self-care (01) ==
LOC: ED 11:24
DX: L03.113 Cellulitis of right upper limb (principal); E11.65 Type 2 diabetes mellitus with hyperglycemia; I10 Essential (primary) hypertension; G43.909 Migraine, unspecified, not intractable, without status migrainosus; E78.00 Pure hypercholesterolemia, unspecified; Z87.01 Personal history of pneumonia (recurrent); Z72.9 Problem related to lifestyle, unspecified; Z90.49 Acquired absence of other specified parts of digestive tract; Z86.73 Personal history of transient ischemic attack (TIA), and cerebral infarction without residual deficits
CPT/HCPCS: 36415; 80048; 82040; 85025; 99284

== ENCOUNTER 2019-04-23 22:13 | Emergency (ER) | payer MEDICARE, MEDICAID ==
[~2019-04-23] VITALS: Ht 177.8 cm; Wt 135.9 kg
--- NOTE | 2019-04-23 22:40 | NUR ---
MD AT BEDSIDE TO ASSESS PT
--- NOTE | 2019-04-23 22:59 | NUR ---
PT TO XRAY
[2019-04-23] MEDS ORDERED: IBUPROFEN 800 MG TABLET PO ONE (23:00)
[2019-04-23] MEDS ORDERED: ACETAMINOPHEN 500 MG TABLET ONE (23:13)
--- NOTE | 2019-04-23 23:16 | NUR ---
VERBAL ORDER FROM DR. EVANGELISTA FOR 1,000MG TYLENOL PO.
--- NOTE | 2019-04-23 23:16 | NUR ---
PT MEDICATED PER MAR
--- NOTE | 2019-04-23 23:58 | NUR ---
ALL RESULTS BACK CHART UP FOR RECHECK
[2019-04-24 00:14] VITALS: BP 119/90
== END 2019-04-24 00:29 | disposition home or self-care (01) ==
LOC: ED 23:02
DX: R07.89 Other chest pain (principal); I10 Essential (primary) hypertension; G43.909 Migraine, unspecified, not intractable, without status migrainosus; E11.65 Type 2 diabetes mellitus with hyperglycemia; E78.00 Pure hypercholesterolemia, unspecified; Z86.73 Personal history of transient ischemic attack (TIA), and cerebral infarction without residual deficits; Z90.89 Acquired absence of other organs; Z90.49 Acquired absence of other specified parts of digestive tract; W18.30XA Fall on same level, unspecified, initial encounter; Y93.89 Activity, other specified; Y92.009 Unspecified place in unspecified non-institutional (private) residence as the place of occurrence of the external cause; Y99.8 Other external cause status
CPT/HCPCS: 71046; 82962; 99283

== ENCOUNTER 2019-07-01 18:47 | Emergency (ER) | payer MEDICARE, MEDICAID ==
[~2019-07-01] VITALS: Ht 177.8 cm; Wt 137.8 kg
[~2019-07-01 18:47] MED LIST changes: -HYDR50TA13 PO; +HYDR50TA99 PO; +SIMV10TA18; +SIMV10TA18 PO; -SIMV10TA3; -SIMV10TA3 PO
[2019-07-01 18:51] VITALS: BP 149/89
--- NOTE | 2019-07-01 19:19 | NUR ---
PT CAME IN CO OF RIGHT HAND PAIN. X RAY TAKEN
== END 2019-07-01 19:54 | disposition home or self-care (01) ==
LOC: ED 19:25
DX: S60.221A Contusion of right hand, initial encounter (principal); I10 Essential (primary) hypertension; E78.00 Pure hypercholesterolemia, unspecified; E78.5 Hyperlipidemia, unspecified; G43.909 Migraine, unspecified, not intractable, without status migrainosus; E66.01 Morbid (severe) obesity due to excess calories; Z68.41 Body mass index [BMI] 40.0-44.9, adult; X58.XXXA Exposure to other specified factors, initial encounter; Y93.89 Activity, other specified; Y92.009 Unspecified place in unspecified non-institutional (private) residence as the place of occurrence of the external cause; Y99.8 Other external cause status
CPT/HCPCS: 99283

== ENCOUNTER 2019-07-05 21:52 | Emergency (ER) | payer MEDICARE, MEDICAID ==
[~2019-07-05] VITALS: Ht 177.8 cm; Wt 136.7 kg
[2019-07-05 21:53] VITALS: BP 188/98
[2019-07-05] MEDS ORDERED: FLUORESCEIN OPHTHALMIC 1 MG STRIP ONE (22:40)
[2019-07-05] MEDS ORDERED: PROPARACAINE OPHTH 0.5%, 15ML ONE (22:40)
--- NOTE | 2019-07-05 23:02 | NUR ---
DC EDUCATION PROVIDED, PT DEMONSTRATES UNDERSTANDING. PT AMBULATED STEADILY TO DC WITH RN
== END 2019-07-05 23:04 | disposition home or self-care (01) ==
LOC: ED 22:22
DX: S05.01XA Injury of conjunctiva and corneal abrasion without foreign body, right eye, initial encounter (principal); I10 Essential (primary) hypertension; E11.9 Type 2 diabetes mellitus without complications; E78.5 Hyperlipidemia, unspecified; Z90.89 Acquired absence of other organs; Z86.73 Personal history of transient ischemic attack (TIA), and cerebral infarction without residual deficits; Z90.49 Acquired absence of other specified parts of digestive tract; X58.XXXA Exposure to other specified factors, initial encounter; Y93.89 Activity, other specified; Y92.89 Other specified places as the place of occurrence of the external cause; Y99.8 Other external cause status
CPT/HCPCS: 99283

== ENCOUNTER 2019-07-10 21:32 | Emergency (ER) | payer MEDICARE, MEDICAID ==
[~2019-07-10] VITALS: Ht 177.8 cm; Wt 136.7 kg
[2019-07-10] MEDS ORDERED: FLUORESCEIN/BENOXINATE 5 ML DROPS OP ONE (22:30)
[2019-07-10 22:33] VITALS: BP 188/112
== END 2019-07-10 23:08 | disposition home or self-care (01) ==
LOC: ED 22:54
DX: T15.01XA Foreign body in cornea, right eye, initial encounter (principal); E11.65 Type 2 diabetes mellitus with hyperglycemia; J45.909 Unspecified asthma, uncomplicated; I10 Essential (primary) hypertension; E78.00 Pure hypercholesterolemia, unspecified; E78.5 Hyperlipidemia, unspecified; G43.909 Migraine, unspecified, not intractable, without status migrainosus; E66.01 Morbid (severe) obesity due to excess calories; Z68.41 Body mass index [BMI] 40.0-44.9, adult; Z90.49 Acquired absence of other specified parts of digestive tract; X58.XXXA Exposure to other specified factors, initial encounter; Y93.89 Activity, other specified; Y92.89 Other specified places as the place of occurrence of the external cause; Y99.8 Other external cause status
CPT/HCPCS: 65222; 99284

== ENCOUNTER 2019-08-01 18:02 | Emergency (ER) | payer MEDICARE, MEDICAID ==
[~2019-08-01] VITALS: Ht 177.8 cm; Wt 132.7 kg
[2019-08-01 18:09] VITALS: BP 163/102
--- NOTE | 2019-08-01 18:24 | NUR ---
FIRST CONTACT WITH PT. 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 PT DENIES LOSS OF VISION OR BLURRY VISION. PT WEARS GLASSES AT BASELINE. PT'S AOX4. RESPS EVEN AND UNLABORED.
[2019-08-01] MEDS ORDERED: EYE WASH SOLUTION 120ML ONE (18:29)
[2019-08-01] MEDS ORDERED: FLUORESCEIN OPHTHALMIC 1 MG STRIP ONE (18:30)
[2019-08-01] MEDS ORDERED: PROPARACAINE OPHTH 0.5%, 15ML ONE (18:30)
[2019-08-01] MEDS ORDERED: KETAMINE 100 MG/ML, 5ML IM ONE (19:00)
--- NOTE | 2019-08-01 19:05 | NUR ---
report given to libby mack.
--- NOTE | 2019-08-01 19:12 | NUR ---
BEDSIDE REPORT RECEIVED FROM FACUNDO HANNON. ASSUMED CARE OF PT. PT SITTING ON GURNEY IN NO DISTRESS. AWAITING DC PAPERWORK AT THIS TIME.
--- NOTE | 2019-08-01 19:21 | NUR ---
Patient/Caregiver given discharge instructions and they have confirmed that they understand the instructions. Patient ambulatory with steady gait.
== END 2019-08-01 19:23 | disposition home or self-care (01) ==
LOC: ED 18:22
DX: H10.211 Acute toxic conjunctivitis, right eye (principal); Z77.098 Contact with and (suspected) exposure to other hazardous, chiefly nonmedicinal, chemicals; E11.9 Type 2 diabetes mellitus without complications; E78.5 Hyperlipidemia, unspecified; G43.909 Migraine, unspecified, not intractable, without status migrainosus
CPT/HCPCS: 99283

== ENCOUNTER 2019-08-14 17:45 | Emergency (ER) | payer MEDICARE, MEDICAID ==
[~2019-08-14] VITALS: Ht 177.8 cm; Wt 133.5 kg
[2019-08-14 17:53] VITALS: BP 135/99
--- NOTE | 2019-08-14 18:33 | NUR ---
THIS IS A 33 YO M W/ C/O RT ARM NUMBNESS THAT STARTED THIS MORNING. PT RESP EVEN AND UNLABORED, CONVERSING W/O DIFFICULTY. ANTOLIN. SILVIO OBSERVED ON PATIENTS CLOTHING, REMOVED AND PLACED IN SPECIMEN CUP FOR CHARGE TO REVIEW.
--- NOTE | 2019-08-14 18:38 | NUR ---
PT PROVIDED URINAL.
[2019-08-14 18:41] LABS: BASOPHILS # (AUTO) 0.03 x10^3/uL (0-0.1); BASOPHILS % (AUTO) 0 % (0-1); EOSINOPHILS # (AUTO) 0.19 x10^3/uL (0-0.4); EOSINOPHILS % (AUTO) 2 % (1-7); LYMPHOCYTES # (AUTO) 1.66 x10^3/uL (1-3.4); LYMPHOCYTES % (AUTO) 14 % (22-44); MD NO; MEAN CORPUSCULAR HEMOGLOBIN 26.5 pg (27.5-34.5); MEAN CORPUSCULAR VOLUME 80.4 fL (81-97); MONOCYTES # (AUTO) 0.68 x10^3/uL (0.2-0.8); MONOCYTES % (AUTO) 6 % (2-9); NEUTROPHILS # (AUTO) 9.25 x10^3/uL (1.8-6.8); NEUTROPHILS % (AUTO) 78 % (42-75); PLATELET COUNT 245 x10^3/uL (130-400); RED BLOOD COUNT 4.73 x10^6/uL (4.38-5.82)
[2019-08-14 18:52] LABS: ALBUMIN 2.1 g/dL (3.4-5.0); ANION GAP 8 mmol/L (5-15); CALCIUM 8.5 mg/dL (8.5-10.1); CHLORIDE 100 mmol/L (98-107); CREATININE 1.74 mg/dL (0.7-1.3)
[2019-08-14] MEDS ORDERED: INSULIN SINGLE DOSE, ER ONE (19:17)
[2019-08-14] MEDS ORDERED: POTASSIUM CHLORIDE 20 MEQ TAB.ER.PRT ONE (19:18)
[2019-08-14] MEDS ORDERED: POTASSIUM CHLORIDE 20 MEQ TAB.ER.PRT PO ONE (19:30)
[2019-08-14] MEDS ORDERED: INSULIN REGULAR 100 UNITS/ML, 3ML VIAL IVPush ONE (19:30)
[2019-08-14] MEDS ORDERED: SODIUM CHLORIDE 0.9% 1,000ML IVBOLUS ONE (19:30)
[2019-08-14] MEDS ORDERED: ONDANSETRON ODT 4 MG PO ONE (21:00)
== END 2019-08-14 20:51 | disposition home or self-care (01) ==
LOC: ED 18:13
DX: E11.65 Type 2 diabetes mellitus with hyperglycemia (principal); R20.2 Paresthesia of skin; I10 Essential (primary) hypertension; G43.909 Migraine, unspecified, not intractable, without status migrainosus; E78.00 Pure hypercholesterolemia, unspecified; J45.909 Unspecified asthma, uncomplicated; Z86.73 Personal history of transient ischemic attack (TIA), and cerebral infarction without residual deficits; Z90.89 Acquired absence of other organs; Z90.49 Acquired absence of other specified parts of digestive tract
CPT/HCPCS: 36415; 80048; 82040; 82962; 85025; 96361; 96374; 99283; J1815; J7030

== ENCOUNTER → 2020-02-28 | Outpatient (CLI) | payer MEDICARE, MEDICAID | END | disposition home or self-care (01) | LOC: WOUND 12:36 | PROVIDERS: ATTEND Internal Medicine | DX: E11.621 Type 2 diabetes mellitus with foot ulcer (principal); L97.511 Non-pressure chronic ulcer of other part of right foot limited to breakdown of skin; E11.40 Type 2 diabetes mellitus with diabetic neuropathy, unspecified; J45.909 Unspecified asthma, uncomplicated; E78.5 Hyperlipidemia, unspecified; L84 Corns and callosities; I10 Essential (primary) hypertension; G43.909 Migraine, unspecified, not intractable, without status migrainosus; E11.69 Type 2 diabetes mellitus with other specified complication; M86.8X8 Other osteomyelitis, other site; E78.00 Pure hypercholesterolemia, unspecified; G47.33 Obstructive sleep apnea (adult) (pediatric); E66.01 Morbid (severe) obesity due to excess calories; Z68.41 Body mass index [BMI] 40.0-44.9, adult; Z91.19 Patient's noncompliance with other medical treatment and regimen; Z90.49 Acquired absence of other specified parts of digestive tract; Z89.411 Acquired absence of right great toe; Z89.512 Acquired absence of left leg below knee; Z86.73 Personal history of transient ischemic attack (TIA), and cerebral infarction without residual deficits; Z86.718 Personal history of other venous thrombosis and embolism | CPT/HCPCS: G0463 ==